=== PATIENT | female | born 1960 | race Caucasian/White ===

== ENCOUNTER 2023-11-22 12:16 | Emergency (ER) | payer OTHER ==
[~2023-11-22] VITALS: Ht 152.4 cm; Wt 80.7 kg
[2023-11-22 12:37] VITALS: BP 143/78; PULSE 75; RESP 16; TEMP 98; O2SAT 97
[2023-11-22] MEDS ORDERED: HYDROcodone/APAP 5/325 MG 1 TAB TAB PO SCH (13:55)
[2023-11-22] MEDS: HYDROcodone/APAP 5/325 MG 1 TAB TAB PO STA (14:25)
[2023-11-22] MEDS ORDERED: ACET-8905 PO (14:26)
[2023-11-22] MEDS ORDERED: CLOT1CRE82 TP (14:26)
[2023-11-22] MEDS ORDERED: DIPH25TA53 PO (14:26)
== END 2023-11-22 14:44 | disposition home or self-care (01) ==
LOC: MED 12:16
DX: B35.6 Tinea cruris (principal); B35.4 Tinea corporis; E11.9 Type 2 diabetes mellitus without complications; E78.5 Hyperlipidemia, unspecified; Z86.73 Personal history of transient ischemic attack (TIA), and cerebral infarction without residual deficits; Z79.899 Other long term (current) drug therapy; Z88.1 Allergy status to other antibiotic agents
CPT/HCPCS: 81002; 99283; Q0163

== ENCOUNTER 2023-11-26 10:56 | Emergency (ER) | payer OTHER ==
[~2023-11-26] VITALS: Ht 154.9 cm; Wt 80.3 kg
[~2023-11-26 10:56] MED LIST: ACET-8905 PO; CLOT1CRE82 TP; DIPH25TA53 PO
[2023-11-26 11:05] VITALS: BP 112/69; PULSE 89; TEMP 97.6; O2SAT 96
[2023-11-26] MEDS ORDERED: DIPH25TA53 PO (11:27)
[2023-11-26] MEDS ORDERED: ACET-8905 PO (11:27)
[2023-11-26] MEDS ORDERED: FLUO0.0210 TP (11:27)
[2023-11-26 11:45] VITALS: BP 112/69; PULSE 89; TEMP 97.6; O2SAT 96
== END 2023-11-26 11:45 | disposition home or self-care (01) ==
LOC: MED 10:56
DX: L29.9 Pruritus, unspecified (principal); R21 Rash and other nonspecific skin eruption; E11.9 Type 2 diabetes mellitus without complications; I63.9 Cerebral infarction, unspecified; Z79.899 Other long term (current) drug therapy; Z88.1 Allergy status to other antibiotic agents
CPT/HCPCS: 99281

== ENCOUNTER 2024-03-05 16:18 | Inpatient (IN) | payer OTHER ==
[~2024-03-05] VITALS: Ht 154.9 cm; Wt 79.8 kg
[~2024-03-05 16:18] MED LIST changes: +FLUO0.0210 TP
[2024-03-05 16:20] VITALS: BP 183/149; PULSE 73; RESP 14; TEMP 98.5; O2SAT 96
[2024-03-05 16:49] LABS: BASOPHILS # (AUTO) 0.1 K/uL (0.00-0.22); BASOPHILS % (AUTO) 0.9 % (0.0-2.0); EOSINOPHILS # (AUTO) 0.2 K/uL (0-0.4); EOSINOPHILS % (AUTO) 3.2 % (0.0-4.0); HEMATOCRIT 44.3 % (36-48); LYMPHOCYTES # (AUTO) 2.1 K/uL (2.5-16.5); LYMPHOCYTES % (AUTO) 36.5 % (20.5-51.1); MEAN CORPUSCULAR HEMOGLOBIN 32 pg (27-31); MEAN CORPUSCULAR HGB CONC 34 g/dL (33-37); MEAN CORPUSCULAR VOLUME 94.4 fL (80-94); MONOCYTES # (AUTO) 0.4 K/uL (0.8-1.0); MONOCYTES % (AUTO) 7.3 % (1.7-9.3); NEUTROPHILS # (AUTO) 2.9 K/uL (1.8-7.7); NEUTROPHILS % (AUTO) 52.1 % (42.2-75.2); PLATELET COUNT (AUTO) 166 K/uL (140-450); RED BLOOD CELL COUNT(AUTO) 4.69 MIL/uL (4.20-5.40); RED CELL DISTRIBUTION WIDTH 12.7 % (11.6-13.7); WHITE BLOOD COUNT (AUTO) 5.7 K/uL (4.8-10.8)
[2024-03-05 16:59] LABS: ANION GAP 14.9 (8-16); CALCIUM 9.4 mg/dL (8.5-10.1); CARBON DIOXIDE 24.6 mmol/L (21-32); CREATININE 0.7 mg/dL (0.6-1.3); POTASSIUM 3.5 mmol/L (3.5-5.1)
[2024-03-05 18:32] LABS: APPEARANCE,URINE CLEAR (CLEAR); BILIRUBIN,URINE NEGATIVE (NEGATIVE); BLOOD, URINE NEGATIVE (NEGATIVE); COLOR,URINE YELLOW (YELLOW); LEUKOCYTE ESTERASE ,URINE TRACE (NEGATIVE); NITRITE, URINE NEGATIVE (NEGATIVE); PROTEIN,URINE NEGATIVE (NEGATIVE); UGLUCOSE NEGATIVE (NEGATIVE); UROBILINOGEN,URINE 0.2 EU/dL (0.2 - 1)
[2024-03-05 18:38] LABS: BACTERIA,URINE FEW /HPF (None Seen); RBC,URINE 0-5 /HPF (0-5); SQUAMOUS EPITHELIAL CELL,UR 0-3 (FEW) /LPF (0-3 (FEW)); WBC,URINE 0-5 /HPF (0-5)
[2024-03-05] MEDS ORDERED: ONDANSETRON 4 MG/2 ML VIAL IVP PRN (19:30)
[2024-03-05] MEDS ORDERED: ACETAMINOPHEN 325 MG TAB PO PRN (19:30)
[2024-03-05] MEDS ORDERED: LORazepam 1 MG TAB PO PRN (19:30)
[2024-03-05 20:00] VITALS: RESP 18; O2SAT 95
[2024-03-05 20:01] LABS: CHOL/HDL RATIO 2.9 (1-4.5); MAGNESIUM 1.9 mg/dL (1.8-2.4); PHOSPHORUS 3.6 mg/dL (2.5-4.9)
[2024-03-05 22:00] VITALS: BP 148/81; PULSE 78; RESP 18; TEMP 97; O2SAT 95
[2024-03-05 23:00] VITALS: PULSE 18; RESP 18; O2SAT 95
[2024-03-06] VITALS (8 sets, daily range): BP systolic 109–155; BP diastolic 61–77; PULSE 53–85; RESP 18; TEMP 96.8–98.3; O2SAT 95–98
[2024-03-06] MEDS: DOCUSATE SODIUM 100 MG GELCAP PO SCH (09:00)
[2024-03-06] MEDS: ASPIRIN 325 MG TABEC PO SCH (13:30)
[2024-03-06] MEDS: CLOPIDOGREL 75 MG TAB PO SCH (13:31)
[2024-03-06 19:30] LABS: BASOPHILS # (AUTO) 0.1 K/uL (0.00-0.22); BASOPHILS % (AUTO) 1.2 % (0.0-2.0); EOSINOPHILS # (AUTO) 0.2 K/uL (0-0.4); EOSINOPHILS % (AUTO) 4.2 % (0.0-4.0); HEMATOCRIT 41.4 % (36-48); LYMPHOCYTES # (AUTO) 1.8 K/uL (2.5-16.5); LYMPHOCYTES % (AUTO) 35.2 % (20.5-51.1); MEAN CORPUSCULAR HEMOGLOBIN 32 pg (27-31); MEAN CORPUSCULAR HGB CONC 34 g/dL (33-37); MEAN CORPUSCULAR VOLUME 94.5 fL (80-94); MONOCYTES # (AUTO) 0.4 K/uL (0.8-1.0); MONOCYTES % (AUTO) 8.2 % (1.7-9.3); NEUTROPHILS # (AUTO) 2.6 K/uL (1.8-7.7); NEUTROPHILS % (AUTO) 51.2 % (42.2-75.2); PLATELET COUNT (AUTO) 150 K/uL (140-450); RED BLOOD CELL COUNT(AUTO) 4.38 MIL/uL (4.20-5.40); RED CELL DISTRIBUTION WIDTH 12.8 % (11.6-13.7); WHITE BLOOD COUNT (AUTO) 5.1 K/uL (4.8-10.8)
[2024-03-06 19:44] LABS: ANION GAP 11.6 (8-16); CALCIUM 9.1 mg/dL (8.5-10.1); CREATININE 0.8 mg/dL (0.6-1.3); POTASSIUM 3.6 mmol/L (3.5-5.1)
[2024-03-06] MEDS: ZOLPIDEM 5 MG TAB PO PRN (23:42)
[2024-03-07] VITALS: BP 142/70; PULSE 60; RESP 18; TEMP 97.5; O2SAT 98
[2024-03-07] MEDS ORDERED: amLODIPine 5 MG TAB PO SCH ×2 (00:15→09:00)
[2024-03-07 04:00] VITALS: BP 135/72; PULSE 55; PULSE 65; RESP 18; TEMP 97.5; O2SAT 98
[2024-03-07 08:00] VITALS: BP 146/79; PULSE 60; PULSE 61; PULSE 76; PULSE 85; RESP 18; TEMP 97; O2SAT 94; O2SAT 98
[2024-03-07] MEDS: amLODIPine 5 MG TAB PO SCH (09:37)
[2024-03-07 12:00] VITALS: BP 151/74; PULSE 65; PULSE 66; RESP 18; TEMP 97.4; O2SAT 96
[2024-03-07] MEDS: HYDROcodone/APAP 5/325 MG 1 TAB TAB PO PRN (14:24)
[2024-03-07 16:00] VITALS: BP 137/66; PULSE 56; PULSE 60; RESP 18; TEMP 98; O2SAT 94
[2024-03-07 20:00] VITALS: BP 153/77; PULSE 62; PULSE 69; RESP 18; TEMP 97.3; O2SAT 97
[2024-03-08] VITALS: BP 146/71; PULSE 65; PULSE 82; RESP 18; TEMP 98.1; O2SAT 97
[2024-03-08 04:00] VITALS: BP 145/68; PULSE 61; PULSE 67; RESP 18; TEMP 98.1; O2SAT 97
[2024-03-08 08:00] VITALS: BP 151/60; PULSE 60; PULSE 82; RESP 17; RESP 19; TEMP 98; O2SAT 97
[2024-03-08 12:00] VITALS: BP 138/70; PULSE 55; PULSE 79; RESP 17; TEMP 97.6; O2SAT 96
[2024-03-08 16:00] VITALS: BP 156/74; PULSE 71; PULSE 88; RESP 17; TEMP 98.2; O2SAT 96
[2024-03-08 20:00] VITALS: BP 142/65; PULSE 59; PULSE 65; RESP 19; TEMP 96.9; O2SAT 96; O2SAT 97
[2024-03-09] VITALS: BP 106/55; PULSE 54; PULSE 58; RESP 18; TEMP 97.5; O2SAT 96
[2024-03-09 04:00] VITALS: BP 135/81; PULSE 55; PULSE 56; RESP 18; TEMP 97; O2SAT 95
[2024-03-09 08:00] VITALS: BP 122/52; PULSE 54; PULSE 57; RESP 20; TEMP 97.4; O2SAT 97
[2024-03-09 12:00] VITALS: BP 129/73; PULSE 57; PULSE 59; RESP 20; TEMP 97.4; O2SAT 92
== END 2024-03-09 14:11 | disposition left against medical advice (07) | DRG 65 ==
LOC: MED 16:18 → MMU 19:26 → MTU 20:52
PROVIDERS: ADMIT Hospitalist; ATTEND Hospitalist
DX: I63.9 Cerebral infarction, unspecified (principal); G81.94 Hemiplegia, unspecified affecting left nondominant side; I10 Essential (primary) hypertension; G51.0 Bell's palsy; E78.5 Hyperlipidemia, unspecified; E11.9 Type 2 diabetes mellitus without complications; Z79.899 Other long term (current) drug therapy; Z88.8 Allergy status to other drugs, medicaments and biological substances; R47.81 Slurred speech; R29.703 NIHSS score 3
CPT/HCPCS: 36415; 70450; 71045; 80048; 81001; 82948; 83036; 83735; 84100; 84484; 85025; 87081; 92526; 93005; 99285; Q0092